=== PATIENT | female | born 1960 | race African-American/Black ===

== ENCOUNTER 2021-10-29 04:27 | Day surgery (SDC) | payer OTHER ==
[2021-10-24 09:09] VITALS: BMI 26.4
[2021-10-29] MEDS ORDERED: LIDOCAINE HCL/PF 1% SDV 5ML VIAL ONE (07:16)
[2021-10-29] MEDS ORDERED: DEXAMETHASONE SOD PHOSPHATE 10 MG/1 ML VIAL ONE (07:16)
[2021-10-29] MEDS ORDERED: DEXAMETHASONE SOD PHOSPHATE 10 MG/1 ML VIAL IVPUSH ONE (13:17)
[2021-10-29] MEDS ORDERED: LIDOCAINE HCL 1% PRESERVATIVE FREE - 30ML VIAL IJ ONE (13:17)
[2021-10-29 15:08] VITALS: BP 141/78; PULSE 60; RESP 20; TEMP 100
== END 2021-10-29 15:50 | disposition home or self-care (01) ==
LOC: JASU-SURG 04:27
PROVIDERS: ATTEND Pain Medicine Pain Medicine
PROC: 3E0R33Z Introduction of Anti-inflammatory into Spinal Canal, Percutaneous Approach (ICD-10-PCS; 2021-10-29)
PROC: 3E0R3BZ Introduction of Anesthetic Agent into Spinal Canal, Percutaneous Approach (ICD-10-PCS; principal; 2021-10-29 12:30)
DX: M54.16 Radiculopathy, lumbar region (principal)
CPT/HCPCS: 76000-TC-FY; C9803-CS; J1100; U0003; U0005

== ENCOUNTER → 2021-12-27 | Day surgery (SDC) | payer OTHER ==
[2021-12-19 10:43] VITALS: BMI 26.4
[~2021-12-27] MED LIST: BUPIVACAINE HCL/PF 0.75% 10 ML VIAL CAUD ONE; BUPIVACAINE HCL/PF 0.75% 10 ML VIAL ONE; LIDOCAINE HCL 1% PRESERVATIVE FREE - 30ML VIAL EP ONE; LIDOCAINE HCL/PF 1% SDV 5ML VIAL ONE
== END | disposition home or self-care (01) ==
LOC: JASU-SURG 04:29
PROVIDERS: ATTEND Pain Medicine Pain Medicine
DX: Z53.8 Procedure and treatment not carried out for other reasons (principal)